=== PATIENT | male | born 1950 | race Asian ===

== ENCOUNTER 2017-05-31 16:29 | Outpatient (RCR) | payer OTHER, SELFPAY | END 2017-06-26 23:59 | LOC: DC 16:29 | PROVIDERS: Family Provider Family Medicine; PCP Family Medicine; Visit Provider Family Medicine | DX: E11.9 Type 2 diabetes mellitus without complications (principal); Z71.3 Dietary counseling and surveillance | CPT/HCPCS: 97802 ==

== ENCOUNTER → 2018-02-22 12:36 | Outpatient (CLI) | payer OTHER, SELFPAY ==
[2018-02-22 13:19] LABS: Uric Acid 7.7 mg/dL (3.5-7.2)
== END ==
PROVIDERS: PCP Family Medicine; Visit Provider Family Medicine
DX: M10.9 Gout, unspecified (principal)
CPT/HCPCS: 84550

== ENCOUNTER → 2018-06-22 11:14 | Outpatient (CLI) | payer OTHER, SELFPAY ==
[2018-05-21 08:34] VITALS: BMI 25.3
== END ==
PROVIDERS: Family Provider Family Medicine; PCP Family Medicine; Referring Provider Family Medicine; Visit Provider Family Medicine
DX: M10.9 Gout, unspecified (principal)
CPT/HCPCS: 84550

== ENCOUNTER 2021-04-28 11:31 | Outpatient (CLI) | payer OTHER, SELFPAY ==
--- NOTE | 2021-04-28 11:35 | RAD_ITS ---
History: COVID EXAMINATION/TECHNIQUE: XR Chest 2 Views: COMPARISON: None FINDINGS: LINES/DEVICES: None. LUNGS: Patchy airspace opacification within both lungs consistent with pneumonia and compatible with co-infection. No pneumothorax. MEDIASTINUM AND CARDIOVASCULAR STRUCTURES: Cardiac silhouette not enlarged. Central airways and mediastinal contour are unremarkable. BONES AND SOFT TISSUES: Unremarkable. RAD/Chest PA and Lateral IMPRESSION: Bilateral pneumonia. at 1653 Reported and signed by: Gonzales Wolf MD Electronically Signed: Gonzales Wolf MD at 16:52 EST ,
== END 2021-04-28 23:59 | disposition short-term general hospital (02) ==
LOC: MTRAD 11:33
PROVIDERS: PCP Family Medicine; Referring Provider Family Medicine; Visit Provider Family Medicine
DX: U07.1 COVID-19 (principal)
CPT/HCPCS: 71046

== ENCOUNTER → 2021-12-03 | Outpatient (CLI) | payer OTHER, SELFPAY ==
--- NOTE | 2021-12-03 13:15 | NEURO ---
NCS and/or EMG Patient Report Ordering Doctor: Gus Amaro DATE OF SERVICE: 12/03/21 Jacob presents for electrodiagnostic testing of the upper limbs. He reports numbness and tingling in both hands, worse on the right side. Electrodiagnostic findings: Right median motor nerve demonstrates prolonged distal latency with normal amplitude and reduced conduction velocity. Left median motor nerve demonstrates prolonged distal latency with normal amplitude and reduced conduction velocity. Normal ulnar motor response bilaterally. Prolonged right median F wave. Prolonged median's sensory latency at the left wrist. Absent right median sensory response at the right wrist. Normal ulnar and radial sensory responses. On needle EMG, all muscles tested in the upper limbs showed no evidence of denervation with normal motor unit action potentials. Electrodiagnostic impression: This is an abnormal study in the upper limbs 1. Electrodiagnostic findings consistent with bilateral median mononeuropathy. This is consistent with a severe right carpal tunnel syndrome and a moderate left carpal tunnel syndrome. 2. No electrodiagnostic evidence is noted for cervical radiculopathy.
== END | disposition home or self-care (01) ==
LOC: PSN 10:23
PROVIDERS: PCP Family Medicine; Referring Provider Family Medicine; Visit Provider Family Medicine
DX: R20.0 Anesthesia of skin (principal); R20.2 Paresthesia of skin
CPT/HCPCS: 95886; 95913

== ENCOUNTER → 2023-06-22 | Outpatient (CLI) | payer OTHER, SELFPAY ==
--- NOTE | 2023-06-22 13:36 | CDU_ITS ---
Reason For Study: CERVICALGIA Rt. Velocities/BP Lt. Velocities/BP Prox CCA 62.0/13.8 cm/sec. Prox CCA 102.7/24.1 cm/sec. Mid CCA 79.9/18.5 cm/sec. Mid CCA 94.1/25.3 cm/sec. Dist CCA 85.6/22.3 cm/sec. Dist CCA 73.2/19.2 cm/sec. Prox ICA 72.6/16.9 cm/sec. Prox ICA 53.4/14.9 cm/sec. Mid ICA 60.4/20.7 cm/sec. Mid ICA 44.3/14.1 cm/sec. Dist ICA 63.2/23.5 cm/sec. Dist ICA 56.6/22.6 cm/sec. Rt. ICA/CCA = 72.6/79.9=0.9. Lt. ICA/CCA = 56.6/94.1=0.6. Prox ECA 90.8/13.8 cm/sec. Prox ECA 91.6/15.5 cm/sec. Rt. Vert. 38.4/11.3 cm/sec. Lt. Vert. 54.7/18.8 cm/sec. Right Extracranial There is homogeneous, smooth atherosclerotic plaque noted in the right common carotid artery. There is heterogeneous, irregular atherosclerotic plaque noted in the right internal carotid artery. There is no significant atherosclerotic plaque noted in the right external carotid artery. Antegrade flow is noted in the right vertebral artery. Left Extracranial There is homogeneous, smooth atherosclerotic plaque noted in the left common carotid artery. There is heterogeneous, irregular atherosclerotic plaque noted in the left internal carotid artery. There is intimal thickening but no significant atherosclerotic plaque noted in the left external carotid artery. Antegrade flow is noted in the left vertebral artery. There is heterogeneous, smooth atherosclerotic plaque noted in the left bulb. Procedure Carotid Duplex 56437. This is a Carotid Duplex examination using B-mode, color flow and specral Doppler. Exam performed in department. VL/Carotid Duplex Ultrasound Interpretation Summary Mild (<50%) stenosis right extracranial internal carotid. Mild (<50%) stenosis left extracranial internal carotid. Flow within the vertebral arteries is antegrade bilaterally. Heterogeneous, smooth atherosclerotic plaque is noted in the left carotid bulb, which does not appear to be hemodynamically significant. Ordering Physician: Gus Amaro Referring Physician: Gus Amaro Performed By: Daphne Sarkar, JOSE, RVT
== END | disposition home or self-care (01) ==
PROVIDERS: PCP Family Medicine; Referring Provider Family Medicine; Visit Provider Family Medicine
DX: M54.2 Cervicalgia (principal)
CPT/HCPCS: 93880

== ENCOUNTER → 2024-12-11 | Outpatient (CLI) | payer MEDICARE, OTHER, SELFPAY ==
[2024-12-11 14:00] LABS: AST(SGOT) 29 U/L (<=37); Alanine Aminotransfer ALT/SGPT 31 U/L (<=46); Albumin, Serum 4.6 g/dL (3.4-4.8); Alkaline Phosphatase 76 U/L (40-129); Anion Gap 11 (5-15); BUN 19 mg/dL (4-19); BUN/Creat Ratio 17.8 RATIO (10-20); Calcium,Total 9.8 mg/dL (7.6-11.0); Carbon Dioxide 24.6 mmol/L (21.0-32.0); Chloride 103 mmol/L (98-108); Cholesterol 275 mg/dL (<=200); Globulin 3.3 g/dL (2.2-4.2); Glucose 118 mg/dL (70-99); Low Density Lipoprotein Calc. 196 mg/dL; Potassium 4.7 mmol/L (3.3-5.1); Triglycerides 170 mg/dL; Very Low Density Lipoprotein 34 mg/dL (5-40); cholesterol:hdl ratio screen 6.15
== END | disposition home or self-care (01) ==
LOC: LAB 12:49
PROVIDERS: PCP Family Medicine; Referring Provider Family Medicine; Visit Provider Family Medicine
DX: E78.5 Hyperlipidemia, unspecified (principal); E11.9 Type 2 diabetes mellitus without complications
CPT/HCPCS: 36415; 80053; 80061; 83036